=== PATIENT | male | born 1985 | race African-American/Black ===

== ENCOUNTER 2017-07-30 10:08 | Emergency (ER) | payer OTHER ==
[~2017-07-30] VITALS: Ht 167.6 cm; Wt 68.1 kg
[~2017-07-30 10:08] MED LIST: PREDNISONE20 MG PO; PREDNISONE50 MG PO; PROAIR HFA8.5 GM IH; PROAIR RESPICL90 MCG IH; PROVENTIL HFA6.7 GM IH; VENTOLIN HFA18 GM IH; ZITHROMAX Z-PA250 MG PO
[2017-07-30 10:44] LABS: HEMATOCRIT 41.9 % (38.0-50.0); HEMOGLOBIN 14.6 G/DL (12.5-16.6); MCH 32.6 PG (29.0-34.0); MCHC 34.8 G/DL (30.0-36.0); MCV 93.5 FL (86-99); PLATELET COUNT 313 K/uL (156-360); RBC DIS.WIDTH-CV 14.2 % (11.8-14.6); RBC DIS.WIDTH-SD 48.7 % (39-53); RED BLOOD COUNT 4.48 M/uL (4.00-5.50); WHITE BLOOD COUNT 5.3 K/uL (4.1-10.2)
[2017-07-30 10:57] LABS: CHLORIDE 103 mEq/L (99-109); POTASSIUM 4.1 mEq/L (3.7-5.4); SODIUM 138 mEq/L (136-147)
[2017-07-30 10:58] LABS: GLUCOSE 94 mg/dL (70-99)
[2017-07-30 11:02] LABS: CREATININE 0.9 mg/dL (0.6-1.3); GFR ESTIMATE (CALCULATED) > 59 mL/min/ (58.99-99999)
[2017-07-30 11:03] LABS: UREA NITROGEN (BUN) 8 mg/dL (9-23)
[2017-07-30] MEDS ORDERED: ZITHROMAX Z-PA250 MG PO (12:41)
[2017-07-30] MEDS ORDERED: ALBUTEROL2.5 MG/3 M IH (12:41)
[2017-07-30] MEDS ORDERED: PROAIR RESPICL90 MCG IH (12:41)
[2017-07-30] MEDS ORDERED: PREDNISONE50 MG PO (12:41)
[2017-07-30 12:49] VITALS: BP 123/961
== END 2017-07-30 12:57 | disposition home or self-care (01) ==
LOC: EME 10:08
DX: J45.901 Unspecified asthma with (acute) exacerbation (principal); F17.210 Nicotine dependence, cigarettes, uncomplicated
CPT/HCPCS: 71046; 80048; 85027; 94640; 99281; 99284; J7512

== ENCOUNTER 2017-08-23 13:42 | Emergency (ER) | payer OTHER ==
[~2017-08-23] VITALS: Ht 170.2 cm; Wt 67.6 kg
[~2017-08-23 13:42] MED LIST changes: +ALBUTEROL2.5 MG/3 M IH
[2017-08-23] MEDS ORDERED: PREDNISONE20 MG PO (14:22)
[2017-08-23] MEDS ORDERED: DUONEB 2.5-0.5 M3 ML AEROSOL (14:22)
[2017-08-23] MEDS ORDERED: ALBUTEROL2.5 MG/3 M IH (14:22)
[2017-08-23 14:33] LABS: HEMATOCRIT 45.8 % (38.0-50.0); HEMOGLOBIN 16.2 G/DL (12.5-16.6); MCH 33.1 PG (29.0-34.0); MCHC 35.4 G/DL (30.0-36.0); MCV 93.7 FL (86-99); PLATELET COUNT 304 K/uL (156-360); RBC DIS.WIDTH-CV 13.6 % (11.8-14.6); RBC DIS.WIDTH-SD 46.6 % (39-53); RED BLOOD COUNT 4.89 M/uL (4.00-5.50); WHITE BLOOD COUNT 5.6 K/uL (4.1-10.2)
[2017-08-23 14:41] LABS: ALBUMIN 4.7 g/dL (3.2-4.8); CHLORIDE 103 mEq/L (99-109); POTASSIUM 4.5 mEq/L (3.7-5.4); SODIUM 140 mEq/L (136-147)
[2017-08-23 14:44] LABS: GLUCOSE 118 mg/dL (70-99); TOTAL PROTEIN 7.8 g/dL (6.4-8.3)
[2017-08-23 14:46] LABS: TOTAL BILIRUBIN 0.7 mg/dL (0.0-1.0)
[2017-08-23 14:47] LABS: ALKALINE PHOSPHATASE 52 IU/L (3-129); CREATININE 0.8 mg/dL (0.6-1.3); GFR ESTIMATE (CALCULATED) > 59 mL/min/ (58.99-99999)
[2017-08-23 14:48] LABS: UREA NITROGEN (BUN) 7 mg/dL (9-23)
[2017-08-23 14:49] LABS: AST (GOT) 24 IU/L (2-34)
[2017-08-23 14:50] LABS: ALT (GPT) 30 IU/L (3-49)
[2017-08-23 17:01] VITALS: BP 156/96
== END 2017-08-23 17:09 | disposition home or self-care (01) ==
LOC: EME 13:42
PROVIDERS: Emergency Medicine Emergency Medical Services
DX: J70.5 Respiratory conditions due to smoke inhalation (principal); J45.901 Unspecified asthma with (acute) exacerbation; R06.03 Acute respiratory distress; R53.1 Weakness; F17.200 Nicotine dependence, unspecified, uncomplicated; Z71.6 Tobacco abuse counseling
CPT/HCPCS: 71045; 80053; 85027; 94640; 99281; 99283; J7512